=== PATIENT | female | born 1995 | race American Indian/Alaskan Native ===

== ENCOUNTER 2021-01-13 23:51 | Inpatient (IN) | payer MEDICAID ==
[2021-01-14] MEDS ORDERED: ceFAZolin 2 GM in Premix Bag 1 BAG IV ONE ×2
[2021-01-14] MEDS ORDERED: Sodium Chloride 0.9% 10 ML SDV IV PRN
[2021-01-14] MEDS ORDERED: Citric Acid/Sodium Citrate Solution 30 ML Cup PO ONE
[2021-01-14] MEDS ORDERED: Oxytocin/0.9 % Sodium Chloride 30 UNIT/500 ML BAG IV SCH
[2021-01-14] MEDS ORDERED: Sodium Chloride 0.9% 10 ML Syringe FLUSH PRN
[2021-01-14] MEDS ORDERED: Sodium Chloride 0.9% 2.5 ML Syringe FLUSH PRN
[2021-01-14 00:57] LABS: BLOOD UREA NITROGEN,BUN 9 mg/dL (7.0-18.0); CARBON DIOXIDE,CO2 22.5 mmol/L (21.0-32.0); CHLORIDE,CL 103 mmol/L (98-107); GLUCOSE RANDOM 79 mg/dL (74-106); POTASSIUM,K 4.2 mmol/L (3.5-5.1); SODIUM,NA 138 mmol/L (136-145)
--- NOTE | 2021-01-14 01:39 | PCM.PREANE ---
Preanesthetic Assessment - Procedure Proposed Procedure: Section (Repeat) for active labor. Term . - Anesthesia/Transfusion/Family Hx Anesthesia History: Prior Anesthesia Without Reaction (Previous spinals for CS without complications, no other surgeries.) Family History of Anesthesia Reaction: No - Review of Systems General: No Symptoms Pulmonary: No Symptoms Cardiovascular: No Symptoms Gastrointestinal: No Symptoms Neurological: No Symptoms Other: Reports: None - Physical Assessment NPO Status Date: 01/14/21 NPO Status Time: 12:00 Height: 1.7 m Weight: 73.482 kg ASA Class: 2 Mental Status: Alert & Oriented x3 Airway Class: Mallampati = 2 Dentition: Reports: Edentulous (Edentulous for upper teeth, lower teeth with some missing posteriorly bilat.) Thyro-Mental Finger Breadths: 3 Mouth Opening Finger Breadths: 4 ROM/Head Extension: Full Lungs: Normal Respiratory Effort Cardiovascular: Regular Rate, Regular Rhythm - Lab Values: Laboratory Last Values WBC 7.31 K/uL (4.0-11.0) 01/13/21 23:58 RBC 4.58 M/uL (4.30-5.90) 01/13/21 23:58 Hgb 9.6 g/dL (12.0-16.0) L 01/13/21 23:58 Hct 32.2 % (36.0-46.0) L 01/13/21 23:58 MCV 70.3 fL (80.0-98.0) L 01/13/21 23:58 MCH 21.0 pg (27.0-32.0) L 01/13/21 23:58 MCHC 29.8 g/dL (31.0-37.0) L 01/13/21 23:58 RDW Std Deviation 56.0 fl (28.0-62.0) 01/13/21 23:58 RDW Coeff of Debo 24 % (11.0-15.0) H 01/13/21 23:58 Plt Count 272 K/uL (150-400) 01/13/21 23:58 Nucleated RBC % 0.0 /100WBC 01/13/21 23:58 Nucleated RBCs # 0 K/uL 01/13/21 23:58 Sodium 138 mmol/L (136-145) 01/13/21 23:58 Potassium 4.2 mmol/L (3.5-5.1) 01/13/21 23:58 Chloride 103 mmol/L (98-107) 01/13/21 23:58 Carbon Dioxide 22.5 mmol/L (21.0-32.0) 01/13/21 23:58 BUN 9 mg/dL (7.0-18.0) 01/13/21 23:58 Creatinine 0.7 mg/dL (0.6-1.0) 01/13/21 23:58 Est Cr Clr Drug Dosing 118.43 mL/min 01/13/21 23:58 Estimated GFR (MDRD) > 60.0 ml/min 01/13/21 23:58 Glucose 79 mg/dL (74-106) 01/13/21 23:58 Calcium 8.6 mg/dL (8.5-10.1) 01/13/21 23:58 Total Bilirubin 0.3 mg/dL (0.2-1.0) 01/13/21 23:58 AST 14 IU/L (15-37) L 01/13/21 23:58 ALT 13 IU/L (14-63) L 01/13/21 23:58 Alkaline Phosphatase 197 U/L (46-116) H 01/13/21 23:58 Total Protein 7.2 g/dL (6.4-8.2) 01/13/21 23:58 Albumin 2.9 g/dL (3.4-5.0) L 01/13/21 23:58 Globulin 4.3 g/dL (2.6-4.0) H 01/13/21 23:58 Albumin/Globulin Ratio 0.7 (0.9-1.6) L 01/13/21 23:58 - Allergies Allergies/Adverse Reactions: Allergies Allergy/AdvReac Type Severity Reaction Status Date / Time No Known Allergies Allergy Verified 01/14/21 00:00 - Acknowledgements Anesthesia Type Planned: Spinal Pt an Appropriate Candidate for the Planned Anesthesia: Yes Alternatives and Risks of Anesthesia Discussed w Pt/Guardian: Yes Pt/Guardian Understands and Agrees with Anesthesia Plan: Yes Additional Comments: H&P with patient participation. Discussed spinal anesthesia for CS including risks, benefits, alternatives, procedure, and recovery, as well as possibility of GA. All questions answered and concerns addressed. Consent signed with RN witness. PreAnesthesia Questionnaire Respiratory History: Reports: Asthma Other Respiratory History: childhood asthma Genitourinary History: Reports: UTI, Recurrent RENTAL COORDINATOR History: Reports: - Infectious Disease History Infectious Disease History: Reports: Chicken Pox, Hepatitis C - Past Surgical History Female Surgical History: Reports: None - CURRENT (IN HOUSE) MEDS Current Meds: Current Medications Oxytocin/Sodium Chloride (Oxytocin 30 Unit/500 Ml-Ns) 30 unit in 500 mls @ 250 mls/hr IV TITRATE KRAIG Lactated Ringer's (Ringers, Lactated) 1,000 mls @ 500 mls/hr IV BOLUS KRAIG Sodium Chloride (Sodium Chloride 0.9% 10 Ml Syringe) 10 ml FLUSH ASDIRECTED PRN PRN Reason: Keep Vein Open Sodium Chloride (Sodium Chloride 0.9% 2.5 Ml Syringe) 2.5 ml FLUSH ASDIRECTED PRN PRN Reason: Keep Vein Open Sodium Chloride (Sodium Chloride 0.9% 10 Ml Sdv) 10 ml IV ASDIRECTED PRN PRN Reason: IV Use Discontinued Medications Citric Acid/Sodium Citrate (Citric Acid/Sodium Citrate Solution 30 Ml Cup) 30 ml PO ONETIME ONE Stop: 01/14/21 00:01 Cefazolin Sodium/Dextrose 2 gm (/ Premix) 50 mls @ 100 mls/hr IV ONETIME ONE Stop: 01/14/21 00:29
[2021-01-14] MEDS ORDERED: fentaNYL 100 MCG/2 ML SDV ONE (01:41)
[2021-01-14] MEDS ORDERED: Morphine PF 10 MG/10 ML SDV ONE (01:41)
[2021-01-14] MEDS ORDERED: Dexamethasone 4 MG/ML 5 ML MDV ONE (01:51)
[2021-01-14] MEDS ORDERED: Ketorolac 30 MG/ML SDV ONE (01:51)
[2021-01-14] MEDS ORDERED: Ondansetron 4 MG/2 ML SDV ONE (01:51)
[2021-01-14] MEDS ORDERED: Oxytocin 10 Units/1 ML SDV ONE (02:12)
[2021-01-14] MEDS ORDERED: Acetaminophen/oxyCODONE 325-5 MG Tab PO PRN (03:13)
[2021-01-14] MEDS ORDERED: Bisacodyl 10 MG Supp RECTAL PRN (03:13)
[2021-01-14] MEDS ORDERED: Ondansetron 4 MG/2 ML SDV IVPUSH PRN (03:13)
[2021-01-14] MEDS ORDERED: diphenhydrAMINE 50 MG/ML SDV IVPUSH PRN (03:13)
[2021-01-14] MEDS ORDERED: Lanolin 100% Cream 7 GM Tube TOP PRN (03:13)
[2021-01-14] MEDS ORDERED: Lactated Ringers 1,000 ML IV SCH ×2 (03:15)
[2021-01-14] MEDS ORDERED: Oxytocin/Lactated Ringers 30 UNIT/500 ML BAG IV SCH (03:15)
--- NOTE | 2021-01-14 03:20 | PCM.OPNOTE ---
- General Post-Op/Procedure Note Date of Surgery/Procedure: 01/14/21 Operative Procedure(s): Repeat low-transverse section via Pfannenstiel Findings: Live male , Apgars 8/9, weight 3160g Normal-appearing uterus, ovaries, and fallopian tubes Adhesions of bladder to anterior uterus Pre Op Diagnosis: 26yo @ 38w4d. Labor. History of section x3. Hepatitis C, viral load undetectable. Anemia in Post-Op Diagnosis: 26yo @ 38w4d. Labor. History of section x3. Hepatitis C, viral load undetectable. Anemia in Anesthesia Technique: Spinal Primary Surgeon: Janina Calabrese Anesthesia Provider: Cedrick Montoya Pathology: Cord blood & gases, placenta Fluid Replacement, Intraop: 800 Output, Urine Amount: 350 (clear yellow urine) EBL in mLs: 800 Complications: None Condition: Good Free Text/Narrative:: Intake & Output 01/13/21 01/13/21 01/14/21 14:59 22:59 06:59 Output Total 250 Balance -250 2g Ancef IV given for antibiotic prophylaxis
--- NOTE | 2021-01-14 03:51 | PCM.POSTAN ---
POST ANESTHESIA ASSESSMENT - MENTAL STATUS Mental Status: Alert, Oriented - VITAL SIGNS Vital Signs: Last Vital Signs Temp Pulse 69 01/14/21 03:42 Resp 9 L 01/14/21 03:42 BP 109/60 01/14/21 03:42 Pulse Ox 99 01/14/21 03:42 - RESPIRATORY Respiratory Status: Respiratory Rate WNL, Airway Patent, O2 Saturation Stable - CARDIOVASCULAR CV Status: Pulse Rate WNL, Blood Pressure Stable - GASTROINTESTINAL GI Status: No Symptoms - PAIN Pain Score: 8 Free Text/Narrative:: Incisional /abdominal pain as spinal regresses. Orders for PO pain medication present and RN to administer. RN aware to notify anesthesia if pain not well- controlled with current order set. - POST OP HYDRATION Hydration Status: Adequate & Stable - OBSERVATIONS Free Text/Narrative:: Spinal regressing steadily. T11 level.
--- NOTE | 2021-01-14 07:51 | OR ---
SURGEON: Janina Calabrese MD DATE OF PROCEDURE: 01/14/2021 PREOPERATIVE DIAGNOSES: 1. A 26-year-old G4, P3-0-0-3 at 38 weeks and 4 days gestation. 2. Labor. 3. History of section x3. 4. Hepatitis C with undetectable viral load. 5. Maternal anemia in . POSTOPERATIVE DIAGNOSES: 1. A 26-year-old G4, P4-0-0-4 at 38 weeks and 4 days gestation. 2. Labor. 3. History of section x3. 4. Hepatitis C with undetectable viral load. 5. Maternal anemia in . PROCEDURE: Repeat low-transverse section via Pfannenstiel. PRIMARY SURGEON: Janina Calabrese MD ANESTHESIA: Spinal by Dr. Matthew Montoya. IV FLUIDS: 800 mL LR. ESTIMATED BLOOD LOSS: 200 mL. URINE OUTPUT: 350 mL, clear yellow urine. ANTIBIOTIC PROPHYLAXIS: 2 g Ancef IV. COMPLICATIONS: None. FINDINGS: Live male infant, cephalic presentation, scores 8 and 9 at one and five minutes respectively, weight 3160 g. Normal-appearing uterus, ovaries, and fallopian tubes. Adhesions of bladder to anterior uterus. INDICATIONS: This is a 26-year-old G4, P3-0-0-3 who presented as a transfer from [place], [place] at 38 weeks and 4 days gestation. She presented earlier in the evening with complaints of contractions for the past day. Upon presentation, her cervix was found to be 1 cm dilated and she was yumiko every 5 to 6 minutes. She was transferred to our facility due to operating room closure in [place]. Upon presentation to our facility, she was found to be yumiko irregularly; however, due to her history of delivery x3, the decision was made to proceed with repeat section. The patient had known maternal anemia and 2 units of packed red blood cells were placed on hold due to risk of blood loss with anterior placenta. The risks, benefits, and alternatives of were reviewed with the patient. DESCRIPTION OF PROCEDURE: The patient was taken to the operating room where spinal anesthesia was obtained without difficulty. She was placed in a dorsal supine position with a leftward tilt. She was prepared and draped in normal sterile fashion. A Pfannenstiel skin incision was made using the previous scar and carried through to the underlying layer of fascia with the scalpel. The fascia was incised in the midline and the incision extended laterally with curved Storey scissors. The superior aspect of the fascial incision was grasped with Clara clamps, elevated, and underlying rectus muscles dissected off bluntly and with scalpel. In a similar fashion, the inferior aspect of the fascial incision was grasped with Clara clamps, elevated, and underlying rectus muscles were dissected off bluntly and with a scalpel. Two hemostats were used to identify the peritoneum in the midline. The peritoneal incision was entered sharply with the Metzenbaum scissor. Peritoneal incision was extended using the Bovie taking care to ensure that the bladder and bowel were not near the area. A large Larry retractor was inserted. A bladder flap was created in the usual fashion. A low uterine hysterotomy was created with a scalpel and the incision extended with manual traction. Artificial rupture of membranes occurred with clear fluid noted. Infant's head was delivered atraumatically followed by the shoulders and remainder of the body. Nuchal cord x1 was reduced after delivery of the body. After approximately 20 seconds, the cord was clamped and cut, and the infant was handed off to the awaiting nurse and hog grader. Cord blood and cord gases were obtained. The anterior placenta then delivered with manual extraction without any difficulty. The hysterotomy was repaired with a running lock stitch of 0 Vicryl suture. A second stitch of the same suture was used to obtain hemostasis. The uterus was returned to the abdomen and the incision was inspected and noted to be hemostatic. The Larry retractor was removed. Fascial incision was closed with a running stitch of 0 Vicryl suture. Subcutaneous tissue was closed with the running stitch of 3-0 Vicryl suture. The skin was closed with subcuticular suture of 4-0 Monocryl. Steri-Strips and a pressure dressing were applied. The patient and infant tolerated the delivery well. All sponge, lap, and needle counts were correct x2. [id number] / MEHRANL /[id number] MTDSourav
[2021-01-14] MEDS: Ketorolac 30 MG/ML SDV IVPUSH SCH ×4 (08:02→20:37)
[2021-01-14] MEDS: Docusate Sodium 100 MG Cap PO SCH ×2 (08:02→20:37)
--- NOTE | 2021-01-14 09:40 | HP ---
DATE OF : 1995 PRIMARY CARE PHYSICIAN: None PCP CHIEF COMPLAINT: Contractions. HISTORY OF PRESENT ILLNESS: This is a 26-year-old G4, P 3-0-0-3 who presented at 38 weeks and 3 days' gestation to the hospital in [place], [place] complaining of contractions since 1 a.m. Upon presentation, she was found to be 1 cm dilated. She reported contractions every 2-3 minutes. She denied leakage of fluid and vaginal bleeding. She reported positive movement. Due to lack of operating room facilities, the patient was transferred to our facility for a repeat . This has been complicated by severe maternal anemia with a hemoglobin of 6.8 in May and 9 ton. She has been on oral iron and vitamin C and has received IV Venofer. She has also had recurrent UTIs during this and uses both tobacco and marijuana products. She has hepatitis C with an undetectable viral load. PAST MEDICAL HISTORY: Maternal anemia and hepatitis B. PAST SURGICAL HISTORY: x3. PAST OBSTETRIC HISTORY: G1, at 40 weeks in 2014 for nonreassuring heart tones. G2, repeat at 38 weeks and 6 days in 2016. G3, repeat at 39 weeks and 1 day gestation in 2018. PAST GYNECOLOGIC HISTORY: Denies history of abnormal Pap smear or STI. FAMILY HISTORY: Noncontributory. SOCIAL HISTORY: Positive for marijuana and tobacco use. Denies alcohol use. MEDICATIONS: Vitamin C, iron, vitamin. ALLERGIES: No known drug allergies. LABS: O positive, antibody screen negative, hepatitis C positive with undetectable viral load, hepatitis B nonreactive, HIV nonreactive, rubella immune, syphilis nonreactive. Reports normal anatomy ultrasound and reports low risk cell- free DNA. OBJECTIVE: VITAL SIGNS: Blood pressure 139/93, heart rate 74. heart tones baseline 140s, moderate variability, positive accelerations, negative decelerations. Tocometer, rare contractions. GENERAL: No apparent distress. CARDIOVASCULAR: Regular rate and rhythm. LUNGS: Clear to auscultation bilaterally. ABDOMEN: Soft, nondistended, nontender, and gravid. EXTREMITIES: No edema. Nontender. GENITOURINARY: Sterile vaginal exam, 1 cm dilated. ASSESSMENT AND PLAN: This is a 26-year-old G4, P 3-0-0-3 who presented at 38 weeks and 4 days' gestation by last menstrual period with contractions and history of delivery x3. She will be admitted to Labor and delivery and undergo a repeat delivery. Due to the severe maternal anemia, 2 units of packed red blood cells will be on hold and she has consented to receiving a blood transfusion if necessary. We reviewed the risks of including but not limited to, infection, bleeding with possible need for medication/surgery/hysterectomy/transfusion, injury to the patient and baby, anesthesia complications, and of the patient or baby. She voiced understanding of the above and desires to proceed. [id number] / MODL /[id number] NICKI
[2021-01-15] MEDS: Ketorolac 30 MG/ML SDV IVPUSH SCH (03:45)
--- NOTE | 2021-01-15 06:24 | PCM.SN.2 ---
- Free Text/Narrative Note: Unable to document in progress note, [employer] keeps closing as I try. Subjective: Per RN, patient ambulated in room yesterday. Has voided since saavedra removed. No issues overnight. Objective: BP 115/65, HR 71, Temp 36.4, RR 16, SpO2 98% Gen: No apparent distress, patient sleeping and unable to be aroused Resp: Normal respiratory effort Abd: Soft, nondistended, nontender, bandage clean/dry/intact Extr: No edema, nontender A/P: 26yo s/p #4 at 38.4, POD#1 1. Continue routine post-op care. 2. Repeat UDS due to concern for maternal drug abuse in hospital. 3. Does not have custody of other 3 children, will get elementary school social worker consult. 4. Hepatitis C - viral load here pending, undetectable on outside records. 5. Maternal anemia - iron & vitamin C, awaiting post-op H&H, 2 units packed RBCs on hold until hemoglobin returns. 6. Dispo - stay today, likely discharge tomorrow.
--- NOTE | 2021-01-15 07:21 | PCM48HPAN ---
Post Anesthesia Note - EVALUATION WITHIN 48HRS OF ANESTHETIC Vital Signs in Normal Range: Yes Patient Participated in Evaluation: Yes Respiratory Function Stable: Yes Airway Patent: Yes Cardiovascular Function Stable: Yes Hydration Status Stable: Yes Pain Control Satisfactory: Yes (Pt not very communicative, but nods "yes" to adequate pain control) Nausea and Vomiting Control Satisfactory: Yes (Shakes head "no" to nausea, taking PO well ) Mental Status Recovered: Yes Vital Signs: Last Vital Signs Temp 36.4 C 01/15/21 04:26 Pulse 73 01/15/21 00:06 Resp 16 01/15/21 04:26 BP 115/65 01/15/21 04:26 Pulse Ox 98 01/15/21 04:26 - COMMENTS/OBSERVATIONS Free Text/Narrative:: Ambulating without difficulty. Reports full return of strength and sensation to BLE.
[2021-01-15] MEDS: Acetaminophen/oxyCODONE 325-5 MG Tab PO PRN ×3 (07:34→21:29)
[2021-01-15] MEDS: Ascorbic Acid 500 MG Tab PO SCH ×2 (07:34→17:01)
[2021-01-15] MEDS: Ferrous Sulfate 325 MG Tab PO SCH ×2 (07:34→17:01)
[2021-01-15] MEDS: Docusate Sodium 100 MG Cap PO SCH ×2 (09:06→21:31)
[2021-01-15] MEDS: Ibuprofen 800 MG Tab PO PRN (14:44)
[2021-01-16] MEDS: Ibuprofen 800 MG Tab PO PRN ×2 (02:06→10:35)
[2021-01-16] MEDS: Acetaminophen/oxyCODONE 325-5 MG Tab PO PRN ×3 (02:07→10:35)
--- NOTE | 2021-01-16 08:00 | PCM.PNPP ---
- General Info Date of Service: 01/16/21 Subjective Update: Doing well. Bottle feeding . Considering getting COVID vaccine and trying to breastfeed baby to pass antibodies. Passing flatus. Functional Status: Reports: Pain Controlled, Tolerating Diet, Ambulating, Urinating - Review of Systems General: Reports: No Symptoms HEENT: Reports: No Symptoms Pulmonary: Reports: No Symptoms Cardiovascular: Reports: No Symptoms Gastrointestinal: Reports: No Symptoms Genitourinary: Reports: No Symptoms Musculoskeletal: Reports: No Symptoms Skin: Reports: No Symptoms Neurological: Reports: No Symptoms Psychiatric: Reports: No Symptoms - Patient Data Vital Signs - Most Recent: Last Vital Signs Temp 36.4 C 01/16/21 06:00 Pulse 63 01/16/21 06:00 Resp 16 01/16/21 06:00 BP 104/64 01/16/21 06:00 Pulse Ox 95 01/16/21 06:00 Weight - Most Recent: 73.482 kg Lab Results - Last 24 Hours: Laboratory Results - last 24 hr 01/15/21 01/15/21 Range/Units 08:02 09:35 Hgb 7.5 L (12.0-16.0) g/dL Hct 25.0 L (36.0-46.0) % Urine Opiates Screen NEGATIVE (NEGATIVE) Ur Oxycodone Screen POSITIVE (NEGATIVE) Urine Methadone Screen NEGATIVE (NEGATIVE) Ur Barbiturates Screen NEGATIVE (NEGATIVE) Ur Phencyclidine Scrn NEGATIVE (NEGATIVE) Ur Amphetamine Screen NEGATIVE (NEGATIVE) U Methamphetamines Scrn NEGATIVE (NEGATIVE) U Benzodiazepines Scrn NEGATIVE (NEGATIVE) U Cocaine Metab Screen NEGATIVE (NEGATIVE) U Marijuana (THC) Screen NEGATIVE (NEGATIVE) Med Orders - Current: Current Medications Ascorbic Acid (Ascorbic Acid 500 Mg Tab) 500 mg PO BIDVTALS [facility] Last Admin: 01/15/21 17:01 Dose: 500 mg Documented by: Bisacodyl (Bisacodyl 10 Mg Supp) 10 mg RECTAL ONETIME PRN PRN Reason: Constipation Diphenhydramine HCl (Diphenhydramine 50 Mg/Ml Sdv) 25 mg IVPUSH Q6H PRN PRN Reason: Itching or Nausea Last Admin: 01/14/21 04:05 Dose: 25 mg Documented by: Docusate Sodium (Docusate Sodium 100 Mg Cap) 100 mg PO BID [facility] Last Admin: 01/15/21 21:31 Dose: 100 mg Documented by: Emollient Ointment (Lanolin 100% Cream 7 Gm Tube) 0 gm TOP ASDIRECTED PRN PRN Reason: Sore Nipples Ferrous Sulfate (Ferrous Sulfate 325 Mg Tab) 325 mg PO BIDMEALS [facility] Last Admin: 01/15/21 17:01 Dose: 325 mg Documented by: Oxytocin/Sodium Chloride (Oxytocin 30 Unit/500 Ml-Ns) 30 unit in 500 mls @ 250 mls/hr IV TITRATE KRAIG Lactated Ringer's (Ringers, Lactated) 1,000 mls @ 500 mls/hr IV BOLUS KRAIG Lactated Ringer's (Ringers, Lactated) 1,000 mls @ 125 mls/hr IV ASDIRECTED KRAIG Oxytocin/Lactated Ringer's (Pitocin In Lr 30 Units/500 Ml) 30 unit in 500 mls @ 999 mls/hr IV TITRATE KRAIG; Protocol Ibuprofen (Ibuprofen 800 Mg Tab) 800 mg PO Q8H PRN PRN Reason: mild pain or fever Last Admin: 01/16/21 02:06 Dose: 800 mg Documented by: Ondansetron HCl (Ondansetron 4 Mg/2 Ml Sdv) 4 mg IVPUSH Q4H PRN PRN Reason: Nausea/Vomiting Oxycodone/Acetaminophen (Acetaminophen/Oxycodone 325-5 Mg Tab) 1 tab PO Q4H PRN PRN Reason: Pain (severe 7-10) Last Admin: 01/16/21 06:11 Dose: 1 tab Documented by: Oxycodone/Acetaminophen (Acetaminophen/Oxycodone 325-5 Mg Tab) 2 tab PO Q4H PRN PRN Reason: Pain (severe 7-10) Last Admin: 01/14/21 04:06 Dose: 2 tab Documented by: Sodium Chloride (Sodium Chloride 0.9% 10 Ml Syringe) 10 ml FLUSH ASDIRECTED PRN PRN Reason: Keep Vein Open Sodium Chloride (Sodium Chloride 0.9% 2.5 Ml Syringe) 2.5 ml FLUSH ASDIRECTED PRN PRN Reason: Keep Vein Open Sodium Chloride (Sodium Chloride 0.9% 10 Ml Sdv) 10 ml IV ASDIRECTED PRN PRN Reason: IV Use Discontinued Medications Citric Acid/Sodium Citrate (Citric Acid/Sodium Citrate Solution 30 Ml Cup) 30 ml PO ONETIME ONE Stop: 01/14/21 00:01 Last Admin: 01/14/21 16:33 Dose: Not Given Documented by: Dexamethasone (Dexamethasone 4 Mg/Ml 5 Ml Mdv) Confirm Administered Dose 20 mg .ROUTE .STK-MED ONE Stop: 01/14/21 01:52 Fentanyl (Fentanyl 100 Mcg/2 Ml Sdv) Confirm Administered Dose 100 mcg .ROUTE .STK-MED ONE Stop: 01/14/21 01:42 Last Admin: 01/14/21 16:33 Dose: Not Given Documented by: Cefazolin Sodium/Dextrose 2 gm (/ Premix) 50 mls @ 100 mls/hr IV ONETIME ONE Stop: 01/14/21 00:29 Last Admin: 01/14/21 16:33 Dose: Not Given Documented by: Cefazolin Sodium/Dextrose (Ancef 2 Gm/50 Ml) Confirm Administered Dose 50 mls @ as directed .ROUTE .STK-MED ONE Stop: 01/14/21 02:13 Ketorolac Tromethamine (Ketorolac 30 Mg/Ml Sdv) Confirm Administered Dose 30 mg .ROUTE .STK-MED ONE Stop: 01/14/21 01:52 Ketorolac Tromethamine (Ketorolac 30 Mg/Ml Sdv) 30 mg IVPUSH Q6H KRAIG Stop: 01/15/21 02:01 Last Admin: 01/15/21 03:45 Dose: 30 mg Documented by: Morphine Sulfate (Morphine Pf 10 Mg/10 Ml Sdv) Confirm Administered Dose 10 mg .ROUTE .STK-MED ONE Stop: 01/14/21 01:42 Last Admin: 01/14/21 16:33 Dose: Not Given Documented by: Ondansetron HCl (Ondansetron 4 Mg/2 Ml Sdv) Confirm Administered Dose 4 mg .ROUTE .STK-MED ONE Stop: 01/14/21 01:52 Oxytocin (Oxytocin 10 Units/1 Ml Sdv) Confirm Administered Dose 30 unit .ROUTE .STK-MED ONE Stop: 01/14/21 02:13 - Interaction Disposition, : in Room with Family Infant Interaction: Holding Infant Infant Feeding: Bottle Fed Infant Support Person: Significant Other - Recovery Exam Fundal Tone: Firm Fundal Level: 1 Fingerbreadths Below Umbilicus Fundal Placement: Midline Lochia Amount: Scant Lochia Color: Rubra/Red Bladder Status: Voiding Urinary Elimination: Voided - Exam General: Alert, Oriented Neck: Supple Lungs: Normal Respiratory Effort GI/Abdominal Exam: Soft, Non-Tender, No Distention Extremities: Non-Tender, No Pedal Edema Skin: Warm, Dry, Intact Wound/Incisions: Healing Well Neurological: No New Focal Deficit Psy/Mental Status: Alert, Normal Affect, Normal Mood - Problem List & Annotations (1) Status post repeat low transverse section SNOMED Code(s): 031303309, 73596322, 311123064, 571203148, 121055193 Code(s): Z98.891 - HISTORY OF UTERINE SCAR FROM PREVIOUS SURGERY Status: Acute Current Visit: Yes - Problem List Review Problem List Initiated/Reviewed/Updated: Yes - My Orders Last 24 Hours: My Active Orders 01/15/21 08:00 Ascorbic Acid [Vitamin C] 500 mg PO BIDMEALS Ferrous Sulfate 325 mg PO BIDMEALS Ibuprofen [Motrin] 800 mg PO Q8H PRN 01/16/21 07:58 Ready for Discharge [RC] PER UNIT ROUTINE - Assessment Assessment:: 26yo s/p #4 at 38w4d, POD#2 - Plan Plan:: Patient desires discharge home today, reviewed discharge precautions/instructions. All questions answered. Continue iron & vitamin C for anemia. Patient is asymptomatic, does not require transfusion. Hep C viral load pending. shared services representative pending in [place]. Follow-up in 2 weeks in clinic for incision check.
[2021-01-16] MEDS: Ferrous Sulfate 325 MG Tab PO SCH (08:28)
[2021-01-16] MEDS: Docusate Sodium 100 MG Cap PO SCH (08:28)
[2021-01-16] MEDS: Ascorbic Acid 500 MG Tab PO SCH (08:28)
== END 2021-01-16 12:15 | disposition home or self-care (01) | DRG 787 ==
LOC: MW.OBCHECK 23:51 → MW.OB 23:51 → MW.OBCHECK 23:59 → MW.OB 23:59 → OBSVTOIN 01-14 → MW.OB 01-14 05:06
PROVIDERS: ADMIT Obstetrics & Gynecology; ATTEND Obstetrics & Gynecology
PROC: 10D00Z1 Extraction of Products of Conception, Low, Open Approach (ICD-10-PCS; principal; 2021-01-14)
DX: O34.211 Maternal care for low transverse scar from previous cesarean delivery (principal); O98.42 Viral hepatitis complicating childbirth; Z37.0 Single live birth; Z3A.38 38 weeks gestation of pregnancy; O99.02 Anemia complicating childbirth; D64.9 Anemia, unspecified; B19.20 Unspecified viral hepatitis C without hepatic coma
CPT/HCPCS: 01961; 36415; 59025; 80053; 80305-QW; 82803; 85014; 85018; 85027; 86592; 86850; 86900; 86901; 86920; 86921; 86922; 87522; A9270-GY; J0690; J1100; J1200; J1885; J2270; J2405; J2590; J3010